=== PATIENT | female | born 1975 | race Caucasian/White ===

== ENCOUNTER 2019-10-09 21:36 | Emergency (ER) | payer SELFPAY ==
[~2019-10-09] VITALS: Ht 170.2 cm; Wt 81.7 kg
[2019-10-09] MEDS ORDERED: LACO50TA2 PO (22:57)
[2019-10-09] MEDS ORDERED: QUET200 PO (22:58)
[2019-10-09] MEDS ORDERED: CLON.5 PO (22:58)
[2019-10-09] MEDS ORDERED: MONT10T PO (22:58)
[2019-10-09] MEDS ORDERED: BUTALB-ACETAMI1 EAC7 PO (22:59)
[2019-10-09] MEDS ORDERED: RABE20 PO (22:59)
[2019-10-09] MEDS ORDERED: EFFEXOR XR150 MG PO (23:00)
[2019-10-09] MEDS ORDERED: PROM25 PO (23:00)
[2019-10-09] MEDS ORDERED: LEVE500 PO (23:01)
[2019-10-09] MEDS ORDERED: TRILEPTAL600 MG PO (23:01)
[2019-10-09] MEDS ORDERED: TRAZ100 PO (23:01)
[2019-10-09] MEDS ORDERED: Norco 10-325 T1 EACH PO (23:01)
[2019-10-09] MEDS ORDERED: ALBU90OI INH (23:02)
[2019-10-09] MEDS ORDERED: LEVSOD100 PO (23:02)
[2019-10-09] MEDS ORDERED: IBUP600 PO (23:09)
[2019-10-09] MEDS ORDERED: CYCL10 PO (23:09)
== END 2019-10-09 23:52 | disposition home or self-care (01) ==
LOC: ER 21:36 → EDBD 21:36 → ER 23:52
DX: S09.90XA Unspecified injury of head, initial encounter (principal); Z88.1 Allergy status to other antibiotic agents; Z88.8 Allergy status to other drugs, medicaments and biological substances; Z79.899 Other long term (current) drug therapy; E03.9 Hypothyroidism, unspecified; F32.9 Major depressive disorder, single episode, unspecified; W19.XXXA Unspecified fall, initial encounter
CPT/HCPCS: 70450; 70486; 72125; 96372-59; 99283-25; J3360; L0160